=== PATIENT | female | born 1940 | race Caucasian/White ===

== ENCOUNTER 2018-10-19 16:30 | Emergency (ER) | payer MEDICARE, BC ==
[~2018-10-19] VITALS: Ht 172.7 cm; Wt 63.5 kg
[~2018-10-19 16:30] MED LIST: ASPI81TA31 PO; DIAZ2TAB PO; DULO60CA45 PO; GABA600T PO; PROBIOTIC1 EACH PO; PROPRANOLOL PO; ROSU5TAB PO; VITAMIN B12 PO; VITAMIN D PO; ZOLP5TAB2 PO
[2018-10-19] MEDS ORDERED: LIDOCAINE HCL 1% 20 ML VIAL IJ ONE (17:00)
[2018-10-19] MEDS ORDERED: NEOMY/BACITRA/POLYMYXIN B OINT UD PACKET TP ONE (17:09)
--- NOTE | 2018-10-19 17:13 | NUR ---
Patient discharged to home in stable conditon. Written and verbal after care instructions given. Patient verbalizes understanding of instructions.pt with family members
== END 2018-10-19 17:22 | disposition home or self-care (01) ==
LOC: ER 16:33
DX: S01.81XA Laceration without foreign body of other part of head, initial encounter (principal); S80.02XA Contusion of left knee, initial encounter; Z79.82 Long term (current) use of aspirin; Z79.899 Other long term (current) drug therapy; W01.0XXA Fall on same level from slipping, tripping and stumbling without subsequent striking against object, initial encounter; Y93.89 Activity, other specified; Y92.89 Other specified places as the place of occurrence of the external cause; Y99.8 Other external cause status
CPT/HCPCS: 12011; 99283; J3490; A4217; A4663